=== PATIENT | female | born 1990 | race Caucasian/White ===

== ENCOUNTER 2016-07-01 14:36 | Emergency (ER) | payer MEDICAID ==
[2013-07-24 06:19] VITALS: BMI 39.5
[~2016-07-01 14:36] MED LIST: NORCO 10/325 TA1 TA1 PO; NORCO 5/325 TAB1 TA1 PO
[2016-07-01 15:56] LABS: BASOPHILS 0.1 % (0.0-2.0); EOSINOPHILS 2.4 % (0-7); HEMATOCRIT 43.9 % (36.0-48.0); HEMOGLOBIN 14.6 g/dL (12-16); IMMATURE GRANULOCYTES 0.1 % (0-5); LYMPHOCYTES 18.6 % (15-50); MCH 30.8 pg (26.0-34.0); MCHC 33.3 g/dL (31.0-37.0); MCV 92.6 fL (80.0-100.0); MEAN PLATELET VOLUME 10.7 fL (7.4-10.4); MONOCYTES 6.9 % (2-11); NEUTROPHILS 71.9 % (40-80); PLATELET COUNT 275 10x3/uL (130-400); RBC 4.74 10x6/uL (4.00-5.40); RDW 13.3 % (11.5-14.5)
[2016-07-01 15:59] LABS: APPEARANCE CLEAR (CLEAR); BACTERIA FEW /hpf (NONE SEEN); BILIRUBIN NEGATIVE (NEGATIVE); COLOR YELLOW (YELLOW); GLUCOSE NEGATIVE (NEGATIVE); KETONE SMALL mg/dL (NEGATIVE); LEUKOCYTE ESTERASE NEGATIVE (NEGATIVE); MUCUS <1+ /lpf (NONE SEEN); NITRITE NEGATIVE (NEGATIVE); PROTEIN NEGATIVE (NEGATIVE); RED CELLS - URINE 0-5 /hpf (0-5); UROBILINOGEN NORMAL (NORMAL); WHITE CELLS - URINE 0-5 /hpf (0-5)
[2016-07-01 16:10] LABS: HCG SERUM NEGATIVE (NEGATIVE)
[2016-07-01 16:15] LABS: ALBUMIN 3.6 g/dL (3.4-5.0); ALKALINE PHOSPHATASE 98 U/L (46-116); ALT (SGPT) 53 U/L (10-68); BILIRUBIN - TOTAL 0.39 mg/dL (0.2-1.3); CALC OSMOLALITY 283 mosm/kg (275-300); CALCIUM 8.9 mg/dL (8.5-10.1); CARBON DIOXIDE 27.1 mmol/L (21.0-32.0); CHLORIDE - SERUM 106 mmol/L (98-107); CREATININE - SERUM 0.8 mg/dL (0.6-1.3); GLUCOSE 100 mg/dL (74-106); POTASSIUM - SERUM 3.4 mmol/L (3.5-5.1); PROTEIN - SERUM 7.3 g/dL (6.4-8.2); SODIUM 143 mmol/L (136-145); UREA NITROGEN 9 mg/dL (7-18); eGFR NON AFRICAN AMERICAN > 90 mL/min (90-120)
== END 2016-07-01 16:59 | disposition home or self-care (01) ==
LOC: D.ER 14:36
PROVIDERS: Physician Assistant
DX: R07.9 Chest pain, unspecified (principal); R35.0 Frequency of micturition; F43.10 Post-traumatic stress disorder, unspecified

== ENCOUNTER 2017-04-23 18:09 | Emergency (ER) | payer MEDICAID ==
[2013-07-24 06:19] VITALS: BMI 39.5
[2017-04-23 19:42] LABS: APPEARANCE CLEAR (CLEAR); BILIRUBIN NEGATIVE (NEGATIVE); COLOR YELLOW (YELLOW); GLUCOSE NEGATIVE (NEGATIVE); KETONE NEGATIVE (NEGATIVE); NITRITE NEGATIVE (NEGATIVE); PROTEIN NEGATIVE (NEGATIVE); SPECIFIC GRAVITY 1.015 (1.005-1.020); UROBILINOGEN NORMAL (NORMAL)
[2017-04-23 21:25] LABS: HCG URINE NEGATIVE (NEGATIVE)
== END 2017-04-23 21:57 | disposition home or self-care (01) ==
LOC: D.ER 18:09
PROVIDERS: Emergency Medicine; Physician Assistant Medical
DX: F41.9 Anxiety disorder, unspecified (principal)

== ENCOUNTER 2017-06-13 19:28 | Emergency (ER) | payer MEDICAID ==
[2013-07-24 06:19] VITALS: BMI 39.5
== END 2017-06-13 21:30 | disposition home or self-care (01) ==
LOC: D.ER 19:28
DX: O26.891 Other specified pregnancy related conditions, first trimester (principal); Z3A.01 Less than 8 weeks gestation of pregnancy; R11.2 Nausea with vomiting, unspecified; J11.1 Influenza due to unidentified influenza virus with other respiratory manifestations

== ENCOUNTER 2018-04-10 21:22 | Emergency (ER) | payer MEDICAID ==
[~2018-04-10] VITALS: Ht 162.6 cm; Wt 121.1 kg
[2018-04-10 21:29] VITALS: Ht 162.6 cm; Wt 121.1 kg
[2018-04-10] MEDS ORDERED: BUPROPION HCL150 M1 PO (21:31)
[2018-04-10] MEDS ORDERED: NUVA RING (21:31)
[2018-04-10 21:54] LABS: BASOPHILS 0.2 % (0-2); EOSINOPHILS 1.3 % (0-7); HEMATOCRIT 40.6 % (36.0-48.0); HEMOGLOBIN 13.7 g/dL (12-16); IMMATURE GRANULOCYTES 0.1 % (0-5); LYMPHOCYTES 12.8 % (15-50); MCH 31.4 pg (26.0-34.0); MCHC 33.7 g/dL (31.0-37.0); MCV 92.9 fL (80.0-100.0); MEAN PLATELET VOLUME 10.3 fL (7.4-10.4); MONOCYTES 8.1 % (2-11); NEUTROPHILS 77.5 % (40-80); PLATELET COUNT 307 10x3/uL (130-400); RBC 4.37 10x6/uL (4.00-5.40); RDW 13.5 % (11.5-14.5); WBC 9.6 10x3/uL (4.8-10.8)
[2018-04-10 21:55] LABS: APPEARANCE HAZY (CLEAR); COLOR AMBER (YELLOW)
[2018-04-10 21:56] LABS: BILIRUBIN NEGATIVE (NEGATIVE); GLUCOSE NEGATIVE (NEGATIVE); KETONE NEGATIVE (NEGATIVE); NITRITE NEGATIVE (NEGATIVE); PROTEIN 1+ mg/dL (NEGATIVE); UROBILINOGEN NORMAL (NORMAL)
[2018-04-10 21:57] LABS: EPITHELIAL CELLS 0-5 /hpf (0-5); RED CELLS - URINE >50 /hpf (0-5); WHITE CELLS - URINE 0-5 /hpf (0-5)
[2018-04-10 21:59] LABS: BACTERIA MODERATE /hpf (NONE SEEN); HCG URINE NEGATIVE (NEGATIVE)
[2018-04-10 22:14] LABS: ALBUMIN 3.3 g/dL (3.4-5.0); ALKALINE PHOSPHATASE 94 U/L (46-116); ALT (SGPT) 51 U/L (10-68); BILIRUBIN - TOTAL 0.34 mg/dL (0.2-1.3); CALC OSMOLALITY 284 mosm/kg (275-300); CARBON DIOXIDE 27.5 mmol/L (21.0-32.0); CHLORIDE - SERUM 105 mmol/L (98-107); CREATININE - SERUM 0.8 mg/dL (0.6-1.3); GLUCOSE 85 mg/dL (74-106); POTASSIUM - SERUM 3.7 mmol/L (3.5-5.1); SODIUM 143 mmol/L (136-145); UREA NITROGEN 14 mg/dL (7-18); eGFR NON AFRICAN AMERICAN > 90 mL/min (90-120)
[2018-04-10 22:19] LABS: AMYLASE - SERUM 23 U/L (25-115); LIPASE 96 U/L (73-393); TROPONIN-I < 0.017 ng/mL (0.000-0.060)
[2018-04-11] MEDS ORDERED: KEFLEX500 MG PO (03:11)
[2018-04-11] MEDS ORDERED: ACETAMINOPHEN500 M1 PO (03:11)
[2018-04-11] MEDS ORDERED: MACROBID100 MG PO (03:11)
[2018-04-11] MEDS ORDERED: CYCLOBENZAPRINE10 MG PO (03:11)
[2018-04-11] MEDS ORDERED: IBUPROFEN800 MG PO (03:13)
[2018-04-11 04:36] VITALS: BP 116/78
== END 2018-04-11 03:47 | disposition home or self-care (01) ==
LOC: D.ER 21:22
PROVIDERS: Family Medicine
DX: N39.0 Urinary tract infection, site not specified (principal); R10.31 Right lower quadrant pain; I88.0 Nonspecific mesenteric lymphadenitis; R11.0 Nausea; R19.7 Diarrhea, unspecified

== ENCOUNTER 2018-07-29 20:40 | Emergency (ER) | payer MEDICAID ==
[~2018-07-29] VITALS: Ht 162.6 cm; Wt 122.7 kg
[~2018-07-29 20:40] MED LIST changes: +ACETAMINOPHEN500 M1 PO; +BUPROPION HCL150 M1 PO; +CYCLOBENZAPRINE10 MG PO; +IBUPROFEN800 MG PO; +KEFLEX500 MG PO; +MACROBID100 MG PO; +NUVA RING
[2018-07-29 21:06] VITALS: Ht 162.6 cm; Wt 122.7 kg
[2018-07-29 22:08] LABS: BASOPHILS 0.2 % (0-2); EOSINOPHILS 1.9 % (0-7); HEMATOCRIT 39.9 % (36.0-48.0); HEMOGLOBIN 13.4 g/dL (12-16); IMMATURE GRANULOCYTES 0.1 % (0-5); LYMPHOCYTES 18.3 % (15-50); MCH 31.4 pg (26.0-34.0); MCHC 33.6 g/dL (31.0-37.0); MCV 93.4 fL (80.0-100.0); MONOCYTES 9.7 % (2-11); NEUTROPHILS 69.8 % (40-80); PLATELET COUNT 348 10x3/uL (130-400); RBC 4.27 10x6/uL (4.00-5.40); RDW 13.4 % (11.5-14.5); WBC 9.6 10x3/uL (4.8-10.8)
[2018-07-29 22:23] LABS: ALKALINE PHOSPHATASE 88 U/L (46-116); ALT (SGPT) 20 U/L (10-68); BILIRUBIN - TOTAL 0.16 mg/dL (0.2-1.3); CALC OSMOLALITY 279 mosm/kg (275-300); CALCIUM 8.5 mg/dL (8.5-10.1); CARBON DIOXIDE 26.4 mmol/L (21.0-32.0); CHLORIDE - SERUM 106 mmol/L (98-107); CREATININE - SERUM 0.7 mg/dL (0.6-1.3); GLUCOSE 112 mg/dL (74-106); POTASSIUM - SERUM 3.6 mmol/L (3.5-5.1); PROTEIN - SERUM 7.5 g/dL (6.4-8.2); SODIUM 140 mmol/L (136-145); UREA NITROGEN 13 mg/dL (7-18); eGFR NON AFRICAN AMERICAN > 90 mL/min (90-120)
[2018-07-29 22:27] LABS: TROPONIN-I < 0.017 ng/mL (0.000-0.060)
[2018-07-29 22:54] LABS: APPEARANCE CLEAR (CLEAR); BILIRUBIN NEGATIVE (NEGATIVE); COLOR YELLOW (YELLOW); GLUCOSE NEGATIVE (NEGATIVE); KETONE NEGATIVE (NEGATIVE); NITRITE NEGATIVE (NEGATIVE); PROTEIN NEGATIVE (NEGATIVE); SPECIFIC GRAVITY 1.015 (1.005-1.020); UROBILINOGEN NORMAL (NORMAL)
[2018-07-30] MEDS ORDERED: LISINOPRIL5 MG PO (00:26)
[2018-07-30 01:02] VITALS: BP 144/76
== END 2018-07-30 01:13 | disposition home or self-care (01) ==
LOC: D.ER 20:40
PROVIDERS: Family Medicine
DX: I10 Essential (primary) hypertension (principal); R05 Cough

== ENCOUNTER 2018-09-30 16:40 | Emergency (ER) | payer MEDICAID ==
[~2018-09-30] VITALS: Ht 162.6 cm; Wt 122.7 kg
[~2018-09-30 16:40] MED LIST changes: +LISINOPRIL5 MG PO
[2018-09-30 16:44] VITALS: Ht 162.6 cm; Wt 122.7 kg
[2018-09-30 17:24] LABS: APPEARANCE CLEAR (CLEAR); BILIRUBIN NEGATIVE (NEGATIVE); COLOR YELLOW (YELLOW); GLUCOSE NEGATIVE (NEGATIVE); KETONE NEGATIVE (NEGATIVE); NITRITE NEGATIVE (NEGATIVE); PROTEIN NEGATIVE (NEGATIVE); UROBILINOGEN NORMAL (NORMAL)
[2018-09-30 17:43] LABS: BASOPHILS 0.2 % (0-2); EOSINOPHILS 1.1 % (0-7); HEMATOCRIT 40.4 % (36.0-48.0); HEMOGLOBIN 13.8 g/dL (12-16); IMMATURE GRANULOCYTES 0.2 % (0-5); LYMPHOCYTES 13.6 % (15-50); MCH 31.4 pg (26.0-34.0); MCHC 34.2 g/dL (31.0-37.0); MEAN PLATELET VOLUME 10.3 fL (7.4-10.4); MONOCYTES 6.2 % (2-11); NEUTROPHILS 78.7 % (40-80); PLATELET COUNT 320 10x3/uL (130-400); RBC 4.39 10x6/uL (4.00-5.40); RDW 13.2 % (11.5-14.5); WBC 12.5 10x3/uL (4.8-10.8)
[2018-09-30] MEDS ORDERED: DICLOFENAC SODI50 MG PO (19:02)
[2018-09-30] MEDS ORDERED: ROBAXIN500 MG PO (19:05)
[2018-09-30 19:53] VITALS: BP 131/82
== END 2018-09-30 19:54 | disposition home or self-care (01) ==
LOC: D.ER 16:40
PROVIDERS: Family Medicine
DX: N94.6 Dysmenorrhea, unspecified (principal)

== ENCOUNTER 2018-10-11 16:36 | Emergency (ER) | payer MEDICAID ==
[~2018-10-11 16:36] MED LIST changes: +DICLOFENAC SODI50 MG PO; +ROBAXIN500 MG PO
[2018-10-11 16:46] VITALS: BMI 46.4
[2018-10-11] MEDS ORDERED: ANXIETY MED (16:48)
[2018-10-11] MEDS ORDERED: TORADOL10 MG PO (20:30)
[2018-10-11] MEDS ORDERED: VIBRAMYCIN 100100 MG PO (20:30)
[2018-10-11 21:16] VITALS: BP 124/80
[2018-10-24] MEDS ORDERED: ZOLOFT100 MG PO (11:17)
== END 2018-10-11 21:17 | disposition home or self-care (01) ==
LOC: D.ER 16:36
DX: R51 Headache (principal); T14.8XXA Other injury of unspecified body region, initial encounter; X58.XXXA Exposure to other specified factors, initial encounter

== ENCOUNTER 2018-10-27 06:50 | Day surgery (SDC) | payer MEDICAID ==
[2018-10-24 11:47] LABS: BASOPHILS 0.1 % (0-2); HEMOGLOBIN 13.6 g/dL (12-16); IMMATURE GRANULOCYTES 0.2 % (0-5); LYMPHOCYTES 17.8 % (15-50); MCH 31.7 pg (26.0-34.0); MCV 93.2 fL (80.0-100.0); MEAN PLATELET VOLUME 10.6 fL (7.4-10.4); MONOCYTES 7.5 % (2-11); NEUTROPHILS 72.4 % (40-80); PLATELET COUNT 349 10x3/uL (130-400); RBC 4.29 10x6/uL (4.00-5.40); RDW 13.9 % (11.5-14.5); WBC 10.4 10x3/uL (4.8-10.8)
[~2018-10-27] VITALS: Ht 162.6 cm; Wt 124.3 kg
[~2018-10-27 06:50] MED LIST changes: +ANXIETY MED; +TORADOL10 MG PO; +VIBRAMYCIN 100100 MG PO; +ZOLOFT100 MG PO
[2018-10-27 07:25] VITALS: BP 131/78; Ht 162.6 cm; Wt 124.3 kg
--- NOTE | 2018-10-27 07:43 | NUR ---
PROCEDURE CANCELLED DUE TO POWER OUTTAGE AND HIGH HUMIDITY. PT IS AWARE AND WILL CALL CLINIC TO RESCHEDULE.
== END 2018-10-27 07:50 | disposition home or self-care (01) ==
LOC: D.OPS 06:50 → D.PAN 07:30 → D.OPS 07:30 → D.PAN 09:35
PROVIDERS: ATTEND Obstetrics & Gynecology
DX: Z30.2 Encounter for sterilization (principal); Z53.9 Procedure and treatment not carried out, unspecified reason

== ENCOUNTER 2018-10-31 08:42 | Day surgery (SDC) | payer MEDICAID ==
[~2018-10-31] VITALS: Ht 162.6 cm; Wt 123.8 kg
[2018-10-31 09:39] LABS: HEMATOCRIT 40.1 % (36.0-48.0); HEMOGLOBIN 13.8 g/dL (12-16); MCHC 34.4 g/dL (31.0-37.0); MCV 90.1 fL (80.0-100.0); MEAN PLATELET VOLUME 10.8 fL (7.4-10.4); RBC 4.45 10x6/uL (4.00-5.40); RDW 13.9 % (11.5-14.5); WBC 7.5 10x3/uL (4.8-10.8)
[2018-10-31 10:08] LABS: BASOPHILS 0.3 % (0-2); EOSINOPHILS 2.1 % (0-7); HEMOGLOBIN 13.8 g/dL (12-16); IMMATURE GRANULOCYTES 0.1 % (0-5); LYMPHOCYTES 17.6 % (15-50); MCH 31.7 pg (26.0-34.0); MCHC 34.5 g/dL (31.0-37.0); MCV 91.7 fL (80.0-100.0); MEAN PLATELET VOLUME 10.4 fL (7.4-10.4); MONOCYTES 9.1 % (2-11); NEUTROPHILS 70.8 % (40-80); PLATELET COUNT 329 10x3/uL (130-400); RBC 4.36 10x6/uL (4.00-5.40); RDW 13.8 % (11.5-14.5); WBC 7.5 10x3/uL (4.8-10.8)
[2018-10-31 10:17] LABS: HCG SERUM NEGATIVE (NEGATIVE)
[2018-10-31 10:42] VITALS: Ht 162.6 cm; Wt 123.8 kg
--- NOTE | 2018-10-31 11:06 | NUR ---
MANAGER RISK MANAGEMENT NOTIFIED OF SUICIDE RISK. FIANCE IN WITH PT AT PRESENT TIME. POLICY PUT IN ACTIVE.
--- NOTE | 2018-10-31 11:47 | NUR ---
DR. STRINGER NOTIFIED AND REVIEWED PT'S BEHAVIOR AND ASSESSMENT RESULTS. PT IS A LOW RISK PER DR. STRINGER. DR. STRINGER STATED TO GIVE RESOURCES TO PT AT THE TIME OF DISCHARGE. NO FURTHER ORDERS AT THIS TIME. RESOURCES REVIEWED WITH PT AND SHE VERBALIZIED UNDERSTANDING.
--- NOTE | 2018-10-31 14:00 | NUR ---
REPORT TAKEN FROM Jossy PICHARDO RN. PATIENT CARE ASSUMED AT THIS TIME.
--- NOTE | 2018-10-31 14:40 | NUR ---
REC'D FROM RR. DROWSY BUT AROUSES TO VERBAL STIMULI. FL TRAY AND LEMON/EWIIAAPAAYP SODA BROUGHT TO PT.
--- NOTE | 2018-10-31 15:10 | NUR ---
TOLERATED DIET. ASSISTED TO BATHROOM AND VOIDECD WITHOUT DIFFICULTY. ICE PACK PLACED TO PATIENT'S NECK TO HELP HER GET COOL. BLOCKER AND POLISHER GOLD WHEEL ROOM.
--- NOTE | 2018-10-31 15:30 | NUR ---
WRITTEN AND VERBAL DC INST. GIVEN TO PT. ALONG WITH RX. VERBALIZED UNDERSTANDING. RELATES IT WILL LISA ALITTLE BIT BEFORE RIDE GETS HERE.
--- NOTE | 2018-10-31 15:53 | OP ---
PATIENT NAME: TERESA DEINSE MEDICAL RECORD: [id number] :89 LOCATION:D.OPS ADMISSION DATE: SURGEON: HERMANN COLÓN MD DATE OF OPERATION: 10/31/2018 PREOPERATIVE DIAGNOSIS: Unwanted fertility. POSTOPERATIVE DIAGNOSES: 1. Unwanted fertility. 2. Dense pelvic adhesive disease. SURGEON: Hermann Colón MD ENTERPRISE PROJECT MANAGER: Angelique Evans. ANESTHESIOLOGIST: Dr. Healy. ANESTHESIA: General. FINDINGS: Dense adhesions across the anterior uterine surface to the abdominal wall. There are adhesions on the left, obscuring visualization of the left ovary. The left fimbria is seen clearly. There are omental adhesions below the umbilicus to the abdominal wall. SPECIMENS REMOVED: None. ESTIMATED BLOOD LOSS: Minimal. FLUIDS: 500 mL of lactated Ringer's. URINE OUTPUT: Quantity sufficient void prior to this procedure. COMPLICATIONS: None. DRAINS: None. INDICATIONS: The patient is a 28-year-old multiparous female with undesired fertility. Risks, benefits as well as limitations of tubal ligation have been discussed. Risk of ectopic has also been disclosed with an increased chance of reoperation. DESCRIPTION OF PROCEDURE: After informed consent was assured, the patient was taken to the operating room, anesthetic was obtained. The patient was now prepped and draped in the usual sterile fashion. Incision was made at the umbilicus to accommodate a 5-mm trocar. An incision was made for accessory trocar in the midline. With the patient in steep Trendelenburg, the 8-mm port is advanced; however, this is abandoned due to the dense adhesions that are occluding the lower abdomen. A second incision was made to the right of midline and through this incision an 8 mm port was placed. The Falope ring applicator was inserted. Right tube was followed to its fimbriated end and then a knuckle developed in the isthmic portion of the tube. After banding, good blanching with the crease is noted. The Falope ring applicator is reloaded and a Silastic ring is applied to the left tube in similar fashion. At this time reaching across the midline from the right lower quadrant port. The left tube was followed to its fimbriated end and again the band placed in the ischemic portion OPERATIVE REPORT [id number] TERESA DENISE of the tube with good blanching and crease formation. The accessory trocars removed under direct visualization as the pneumoperitoneum was released. Skin reapproximated with subcuticular stitch and Dermabond applied. Sponge, lap, and needle counts correct times 2. TRANSINT:[id number] Voice Confirmation ID: [id number] DOCUMENT ID: [id number] HERMANN COLÓN MD at 1553 CC: [id number] DICTATION DATE: 10/31/18 1315 RESOLUTION EXPERT: 10/31/18 1451 [facility] [address] [place] [address]
--- NOTE | 2018-10-31 16:13 | NUR ---
RIDE STILL NOT HERE. NO CHANGES NOTED.
--- NOTE | 2018-10-31 17:15 | NUR ---
[facility] IS HERE. TAKEN TO VEHICLE VIA WC. STABLE AT TIME OF DC.
== END 2018-10-31 17:15 | disposition home or self-care (01) ==
LOC: D.OPS 08:42
PROVIDERS: Anesthesiology; ATTEND Obstetrics & Gynecology
DX: Z30.2 Encounter for sterilization (principal); N73.6 Female pelvic peritoneal adhesions (postinfective); Z01.812 Encounter for preprocedural laboratory examination

== ENCOUNTER 2018-11-05 20:32 | Emergency (ER) | payer MEDICAID ==
[~2018-11-05] VITALS: Ht 162.6 cm; Wt 122.7 kg
[2018-11-05 20:41] VITALS: Ht 162.6 cm; Wt 122.7 kg
[2018-11-05 21:30] VITALS: BP 117/80
== END 2018-11-05 21:30 | disposition home or self-care (01) ==
LOC: D.ER 20:32
DX: Z00.8 Encounter for other general examination (principal)

== ENCOUNTER 2018-12-01 10:19 | Emergency (ER) | payer MEDICAID ==
[~2018-12-01] VITALS: Ht 162.6 cm; Wt 122.7 kg
[2018-12-01 10:40] VITALS: Ht 162.6 cm; Wt 122.7 kg
[2018-12-01 11:16] LABS: BASOPHILS 0.2 % (0-2); EOSINOPHILS 1.9 % (0-7); HEMATOCRIT 40.6 % (36.0-48.0); HEMOGLOBIN 14.7 g/dL (12-16); IMMATURE GRANULOCYTES 0.2 % (0-5); LYMPHOCYTES 17.7 % (15-50); MCH 33.2 pg (26.0-34.0); MCHC 36.2 g/dL (31.0-37.0); MCV 91.6 fL (80.0-100.0); MEAN PLATELET VOLUME 10.5 fL (7.4-10.4); MONOCYTES 7.7 % (2-11); NEUTROPHILS 72.3 % (40-80); PLATELET COUNT 340 10x3/uL (130-400); RBC 4.43 10x6/uL (4.00-5.40); RDW 13.5 % (11.5-14.5); WBC 8.4 10x3/uL (4.8-10.8)
[2018-12-01 11:30] LABS: INR 1.01 (0.85-1.17); PROTIME 12.8 SECONDS (11.6-15.0)
[2018-12-01 11:46] LABS: ALBUMIN 3.8 g/dL (3.4-5.0); ALKALINE PHOSPHATASE 116 U/L (46-116); ALT (SGPT) 39 U/L (10-68); BILIRUBIN - TOTAL 0.32 mg/dL (0.2-1.3); CALC OSMOLALITY 279 mosm/kg (275-300); CALCIUM 8.8 mg/dL (8.5-10.1); CHLORIDE - SERUM 104 mmol/L (98-107); CREATININE - SERUM 0.8 mg/dL (0.6-1.3); GLUCOSE 96 mg/dL (74-106); POTASSIUM - SERUM 3.4 mmol/L (3.5-5.1); PROTEIN - SERUM 8.1 g/dL (6.4-8.2); SODIUM 141 mmol/L (136-145); UREA NITROGEN 10 mg/dL (7-18); eGFR NON AFRICAN AMERICAN > 90 mL/min (90-120)
[2018-12-01 11:58] LABS: CREATINE KINASE 136 UL (21-215); MAGNESIUM - SERUM 1.9 mg/dL (1.8-2.4)
[2018-12-01 11:59] LABS: TROPONIN-I < 0.017 ng/mL (0.000-0.060)
[2018-12-01 12:32] LABS: HCG URINE NEGATIVE (NEGATIVE); UDS - AMPHET NEGATIVE QUAL (NEGATIVE); UDS - BARB NEGATIVE QUAL (NEGATIVE); UDS - BENZO NEGATIVE QUAL (NEGATIVE); UDS - COCAINE NEGATIVE QUAL (NEGATIVE); UDS - OPIATE NEGATIVE QUAL (NEGATIVE); UDS - PCP NEGATIVE QUAL (NEGATIVE); UDS - THC NEGATIVE QUAL (NEGATIVE)
[2018-12-01 12:33] LABS: APPEARANCE CLEAR (CLEAR); BILIRUBIN NEGATIVE (NEGATIVE); COLOR STRAW (YELLOW); GLUCOSE NEGATIVE (NEGATIVE); KETONE NEGATIVE (NEGATIVE); NITRITE NEGATIVE (NEGATIVE); PROTEIN NEGATIVE (NEGATIVE); SPECIFIC GRAVITY 1.005 (1.005-1.020); UROBILINOGEN NORMAL (NORMAL)
[2018-12-01] MEDS ORDERED: ROBAXIN500 MG PO (14:22)
[2018-12-01 15:23] VITALS: BP 118/74
== END 2018-12-01 15:24 | disposition home or self-care (01) ==
LOC: D.ER 10:19
PROVIDERS: Family Medicine
DX: R07.89 Other chest pain (principal); I49.9 Cardiac arrhythmia, unspecified

== ENCOUNTER 2019-05-14 12:15 | Emergency (ER) | payer MEDICAID ==
[2018-12-01 10:40] VITALS: Ht 162.6 cm; Wt 127.3 kg
[~2019-05-14] VITALS: Ht 162.6 cm; Wt 127.3 kg
[2019-05-14] MEDS ORDERED: VOLTAREN75 MG PO (12:22)
[2019-05-14 13:11] LABS: BASOPHILS 0.2 % (0-2); EOSINOPHILS 2.1 % (0-7); HEMATOCRIT 41.3 % (36.0-48.0); HEMOGLOBIN 13.8 g/dL (12-16); IMMATURE GRANULOCYTES 0.2 % (0-5); LYMPHOCYTES 23.3 % (15-50); MCH 31.4 pg (26.0-34.0); MCHC 33.4 g/dL (31.0-37.0); MCV 93.9 fL (80.0-100.0); MEAN PLATELET VOLUME 10.2 fL (7.4-10.4); MONOCYTES 6.6 % (2-11); NEUTROPHILS 67.6 % (40-80); PLATELET COUNT 364 10x3/uL (130-400); RDW 13.3 % (11.5-14.5); WBC 8.5 10x3/uL (4.8-10.8)
[2019-05-14 13:23] LABS: CALC OSMOLALITY 281 mosm/kg (275-300); CALCIUM 8.6 mg/dL (8.5-10.1); CARBON DIOXIDE 28.3 mmol/L (21.0-32.0); CHLORIDE - SERUM 104 mmol/L (98-107); CREATININE - SERUM 0.7 mg/dL (0.6-1.3); GLUCOSE 90 mg/dL (74-106); POTASSIUM - SERUM 3.8 mmol/L (3.5-5.1); SODIUM 142 mmol/L (136-145); UREA NITROGEN 10 mg/dL (7-18); eGFR NON AFRICAN AMERICAN > 90 mL/min (90-120)
[2019-05-14 13:28] LABS: ALBUMIN 3.6 g/dL (3.4-5.0); ALKALINE PHOSPHATASE 101 U/L (46-116); ALT (SGPT) 21 U/L (10-68); BILIRUBIN - TOTAL 0.27 mg/dL (0.2-1.3); PROTEIN - SERUM 7.7 g/dL (6.4-8.2)
[2019-05-14 13:55] LABS: APPEARANCE CLEAR (CLEAR); BILIRUBIN NEGATIVE (NEGATIVE); COLOR YELLOW (YELLOW); GLUCOSE NEGATIVE (NEGATIVE); KETONE NEGATIVE (NEGATIVE); NITRITE NEGATIVE (NEGATIVE); PROTEIN NEGATIVE (NEGATIVE); UROBILINOGEN NORMAL (NORMAL)
[2019-05-14] MEDS ORDERED: LISINOPRIL2.5 MG PO (14:31)
[2019-05-14 14:41] VITALS: BP 124/75
== END 2019-05-14 14:41 | disposition home or self-care (01) ==
LOC: D.ER 12:15
PROVIDERS: Emergency Medicine
DX: I10 Essential (primary) hypertension (principal); R51 Headache; R53.1 Weakness; R01.1 Cardiac murmur, unspecified